=== PATIENT | male | born 1950 | race Caucasian/White ===

== ENCOUNTER → 2017-09-10 | Day surgery (SDC) | payer MEDICARE ==
[~2017-09-10] MED LIST: CETI1TAB21 PO; COUM3TAB PO; DIAZ10 PO; FERR324T PO; KETOROLAC TROMETHAMINE 30 MG/ML (IVP) VIAL IV PUSH ONE; LACTATED RINGER'S 1000 ML INJ 1,000 ML ONE; LIDOCAINE 1%/EPINEPHrine 1:100,000 SOLN 50 ML VIAL ONE; LORT7.5T3 PO; MIDAZOLAM HCL 2 MG/2 ML VIAL ONE; ONDANSETRON HCL 4 MG/2 ML VIAL IV PUSH ONE; PROPOFOL 100 MG/10 ML INJ IV ONE; SODIUM BICARBONATE 8.4% INJ 0 ML ONE; VENL75TA91 PO
--- NOTE | 2017-09-10 10:43 | TN ---
cc: GAYLE BROWNING DATE OF SURGERY 09/10/2017 PREOPERATIVE DIAGNOSIS 1. Left temporal headaches with left side pain. 2. Rule out temporal arteritis. POSTOPERATIVE DIAGNOSIS 1. Left temporal headaches with left side pain. 2. Rule out temporal arteritis. PROCEDURE PERFORMED Left temporal artery biopsy. SURGEON Gayle Browning MD ANESTHESIA General LMA COMPLICATIONS None INDICATIONS FOR THE PROCEDURE Mr. Dickinson is a very pleasant 67-year-old gentleman who has had some problems with left temporal headaches as well as left eye pain. He has seen and evaluated by his neurologist, Dr. Akhtar. He was noted to have an elevated sedimentation rate and a C-reactive protein. He was referred for surgical consideration of temporal artery biopsy. The risks and benefits of temporal artery biopsy was discussed with him including the fact that the majority of these biopsies are negative and the patient was willing to proceed. DETAILS The patient was identified, brought to the operating room, placed supine on the operating table. After adequate general anesthesia was achieved, the left side of the head was shaved, prepped and draped in the standard surgical fashion. Doppler was used to identify the approximate location of the temporal artery starting in the preauricular space and going up onto the left scalp. It was marked out with a marking pen. The left side of the head was then prepped and draped in standard surgical fashion. Quarter percent Marcaine injected in the skin and subcutaneous tissue directly overlying the proposed incision. A vertical incision was made from the preauricular space going up on to the left scalp. Dissection proceeded down into the subcutaneous tissue using sharp dissection. Next, using blunt dissection, the temporal artery was identified. It was followed over several centimeters. It was tied off proximally and distally with a 3-0 Vicryl suture. It was then transected and sent to pathology for analysis. Prior to tying it off, we did confirm it with the Doppler that it had pulsatile flow. A specimen was sent to pathology for analysis. The wound was then irrigated with local anesthetic and then closed in two layers using a 4-0 Vicryl. Sterile dressings were applied and the patient was awakened, brought to recovery in stable condition. MD PATTI Gaona/MARQUES /10:37 AM 10:43 AM
== END | disposition home or self-care (01) ==
LOC: ESDC 08:21
PROVIDERS: ATTEND Surgery Trauma Surgery
DX: R51 Headache (principal); R70.0 Elevated erythrocyte sedimentation rate
CPT/HCPCS: 00352; 37609; 88305; J1885; J2250; J2405; J3010; J7120; 88307